=== PATIENT | male | born 1975 | race Caucasian/White ===

== ENCOUNTER 2017-05-26 12:14 | Emergency (ER) | payer OTHER, MEDICARE ==
[~2017-05-26] VITALS: Ht 172.7 cm; Wt 63.5 kg
[~2017-05-26 12:14] MED LIST: BENTYL 10 MG CA10 M1 PO; CIPROFLOXACIN500 M1 PO; FLAGYL500 MG PO; LIPITOR10 MG PO; NORCO 5-325 TA1 EAC1 PO; NORTRIPTYLINE H25 M3 PO; ONDANSETRON HCL4 M2 PO; PHENERGAN 25 MG25 M1 PO; PHENERGAN25 M1 RECTAL; REGLAN 10 MG TA10 MG PO; TRAZODONE HCL100 MG PO; VENLAFAXIN75 MG/1 T2 PO; XANAX1 MG PO
[2017-05-26 12:50] LABS: HEMATOCRIT 44.3 % (42.0-52.0); HEMOGLOBIN 14.7 gm/dL (14.0-18.0); MCH 31.9 pg (26.0-34.0); MCHC 33.1 g/dL (28.0-37.0); MCV 96.5 fL (80.0-100.0); MPV 8.2 fl. (7.2-11.1); NUCLEATED RBCS 0 /100WBC; PLATELET COUNT* 344 thou/uL (150-400); RBC 4.59 mil/uL (4.50-6.00); RDW-CV 12.5 % (10.5-14.5); WBC 24.1 thou/uL (4.0-11.0)
[2017-05-26 12:53] LABS: INFLUENZA A ANTIGEN None Detected (None Detect); INFLUENZA B ANTIGEN None Detected (None Detect)
[2017-05-26 13:00] LABS: CALCIUM 10.2 mg/dL (8.5-10.1); CREATININE 1.1 mg/dL (0.6-1.3); POTASSIUM 3.8 mmol/L (3.5-5.1)
[2017-05-26 13:05] LABS: ALBUMIN 4.9 g/dL (3.4-5.0); TOTAL BILIRUBIN 0.8 mg/dL (<0.1-1.0); TOTAL PROTEIN 9.7 g/dL (6.4-8.2)
[2017-05-26 13:12] LABS: URINE BLOOD 2+ (Negative); URINE CLARITY CLEAR; URINE COLOR YELLOW; URINE GLUCOSE-RANDOM NEGATIVE (Negative); URINE KETONES 1+ (Negative); URINE LEUKOCYTES-REFLEX NEGATIVE (Negative); URINE NITRITE-REFLEX NEGATIVE (Negative); URINE PROTEIN 2+ (Negative); URINE SPECIFIC GRAVITY 1.015 (1.005-1.030); URINE UROBILINOGEN 0.2 E.U./dl (0.2-1.0)
[2017-05-26 13:16] LABS: ICTOTEST (BILI CONFIRMATORY) Negative (Negative); URINE BILIRUBIN 1+ (Negative)
[2017-05-26 13:20] LABS: AMP/METHAMP Negative (Negative); BARBITURATES Negative (Negative); BENZODIAZEPINES POSITIVE (Negative); COCAINE Negative (Negative); METHADONE Negative (Negative); OPIATES Negative (Negative); PCP Negative (Negative); THC POSITIVE (Negative)
[2017-05-26 13:57] LABS: BACTERIA-REFLEX None Seen /HPF (None Seen); MUCUS >6 Heavy strn/LPF (None Seen); SQUAMOUS 0-3 Few /LPF (0-3); URINE WBC-REFLEX 0-5 Rare /HPF (0-5)
[2017-05-26 13:58] LABS: CASTS None Seen /LPF (None Seen); CRYSTALS None Seen /LPF (None Seen)
[2017-05-26 14:15] LABS: ABSOLUTE LYMPHOCYTES 3.1 thou/uL (0.8-5.3); ABSOLUTE MONOCYTES 1.9 thou/uL (0.0-1.2); ATYPICAL LYMPHS 2 %; PLATELET ESTIMATE ADEQUATE
[2017-05-26] MEDS ORDERED: ZOFRAN ODT4 MG PO (14:42)
[2017-05-26] MEDS ORDERED: PROMS25 WY RECTAL (14:42)
[2017-05-26 14:57] VITALS: BP 104/80
== END 2017-05-26 14:59 | disposition home or self-care (01) ==
LOC: M.ERS 12:14
PROVIDERS: Physician Assistant
DX: R11.2 Nausea with vomiting, unspecified (principal); F12.10 Cannabis abuse, uncomplicated; F41.9 Anxiety disorder, unspecified; F32.9 Major depressive disorder, single episode, unspecified; F17.210 Nicotine dependence, cigarettes, uncomplicated

== ENCOUNTER 2018-12-14 21:23 | Emergency (ER) | payer OTHER, MEDICARE ==
[~2018-12-14] VITALS: Ht 172.7 cm; Wt 63.5 kg
[~2018-12-14 21:23] MED LIST changes: +PROMS25 WY RECTAL; +ZOFRAN ODT4 MG PO
[2018-12-14 21:53] LABS: HEMATOCRIT 39.9 % (42.0-52.0); HEMOGLOBIN 13.8 gm/dL (14.0-18.0); MCH 32.1 pg (26.0-34.0); MCHC 34.6 g/dL (28.0-37.0); MCV 92.8 fL (80.0-100.0); MPV 7.7 fl. (7.2-11.1); NUCLEATED RBCS 0 /100WBC; PLATELET COUNT* 316 thou/uL (150-400); RDW-CV 12.4 % (10.5-14.5); WBC 25.4 thou/uL (4.0-11.0)
[2018-12-14 22:00] LABS: CALCIUM 11.1 mg/dL (8.5-10.1); CREATININE 1.1 mg/dL (0.6-1.3); POTASSIUM 3.5 mmol/L (3.5-5.1)
[2018-12-14 22:05] LABS: TOTAL BILIRUBIN 0.6 mg/dL (<0.1-1.0)
[2018-12-14 22:37] LABS: ABSOLUTE LYMPHOCYTES 4.1 thou/uL (0.8-5.3); ABSOLUTE MONOCYTES 1.8 thou/uL (0.0-1.2); ABSOLUTE NEUTROPHILS 19.6 thou/uL (1.6-8.1)
[2018-12-14 22:38] LABS: PLATELET ESTIMATE ADEQUATE
[2018-12-14 23:21] LABS: URINE BILIRUBIN NEGATIVE (Negative); URINE BLOOD 2+ (Negative); URINE CLARITY CLEAR; URINE COLOR YELLOW; URINE GLUCOSE-RANDOM NEGATIVE (Negative); URINE KETONES 2+ (Negative); URINE LEUKOCYTES-REFLEX NEGATIVE (Negative); URINE NITRITE-REFLEX NEGATIVE (Negative); URINE PROTEIN 1+ (Negative); URINE SPECIFIC GRAVITY 1.015 (1.005-1.030); URINE UROBILINOGEN 0.2 E.U./dl (0.2-1.0)
[2018-12-14] MEDS ORDERED: PHENERGAN 25 MG25 M1 PO (23:50)
[2018-12-15 00:14] VITALS: BP 131/83
[2018-12-15 00:20] LABS: CASTS None Seen /LPF (None Seen); SQUAMOUS 0-3 Few /LPF (0-3)
[2018-12-15 00:21] LABS: BACTERIA-REFLEX 1-9 Few /HPF (None Seen); URINE WBC-REFLEX 0-5 Rare /HPF (0-5)
[2018-12-15 00:22] LABS: CRYSTALS None Seen /LPF (None Seen)
== END 2018-12-15 00:15 | disposition home or self-care (01) ==
LOC: M.ERS 21:23
PROVIDERS: Emergency Medicine
DX: T67.9XXA Effect of heat and light, unspecified, initial encounter (principal); R11.2 Nausea with vomiting, unspecified; F41.9 Anxiety disorder, unspecified; F32.9 Major depressive disorder, single episode, unspecified; Z87.891 Personal history of nicotine dependence; X30.XXXA Exposure to excessive natural heat, initial encounter; Y93.89 Activity, other specified; Y92.89 Other specified places as the place of occurrence of the external cause; Y99.8 Other external cause status

== ENCOUNTER 2019-11-22 10:31 | Emergency (ER) | payer OTHER, MEDICARE ==
[~2019-11-22] VITALS: Ht 172.7 cm; Wt 63.5 kg
[2019-11-22] MEDS ORDERED: NORCO 5-325 TA1 EAC2 PO (11:46)
[2019-11-22 11:58] VITALS: BP 108/77
== END 2019-11-22 12:01 | disposition home or self-care (01) ==
LOC: M.ERS 10:31
DX: S62.316A Displaced fracture of base of fifth metacarpal bone, right hand, initial encounter for closed fracture (principal); Z87.891 Personal history of nicotine dependence; W08.XXXA Fall from other furniture, initial encounter; Y93.89 Activity, other specified; Y92.89 Other specified places as the place of occurrence of the external cause; Y99.8 Other external cause status